=== PATIENT | male | born 1950 | race Caucasian/White ===

== ENCOUNTER 2024-04-02 07:03 | Day surgery (SDC) | payer OTHER ==
[2024-04-02] VITALS (11 sets, daily range): BP systolic 104–166; BP diastolic 48–79; PULSE 53–60; RESP 15–18; TEMP 97.1–97.3
[~2024-04-02] VITALS: Ht 172.7 cm; Wt 86.2 kg
[~2024-04-02 07:03] MED LIST: 0.9% NACL 500ML IV.SOLN 0 ML IV ONE; ASPI-1197 PO; ATOR40TA69 PO; LEVO200C2 PO; LISI40TA9 PO; METF-446 PO; METO-408 PO
[2024-04-02] MEDS: 0.9%NACL 1000ML 1,000 ML IV ONE (08:30)
[2024-04-02] MEDS ORDERED: proPOFol 10 MG/ML 20ML VIAL IV ONE (10:29)
== END 2024-04-02 11:52 | disposition home or self-care (01) ==
LOC: ENDO 07:03 → DAH 07:18 → ENDO 11:52
PROVIDERS: ATTEND Internal Medicine Gastroenterology
DX: Z12.11 Encounter for screening for malignant neoplasm of colon (principal); K63.3 Ulcer of intestine; R93.3 Abnormal findings on diagnostic imaging of other parts of digestive tract; K86.2 Cyst of pancreas; I10 Essential (primary) hypertension; E11.9 Type 2 diabetes mellitus without complications; I25.10 Atherosclerotic heart disease of native coronary artery without angina pectoris; E03.9 Hypothyroidism, unspecified; Z79.84 Long term (current) use of oral hypoglycemic drugs; Z79.82 Long term (current) use of aspirin; Z79.899 Other long term (current) drug therapy
CPT/HCPCS: 82948; 45380; J7030 ×2; J2704; A4620; A4215; A4223; A7002; A4222; A4221; A4663; A4606; J7040; J3490

== ENCOUNTER 2024-04-10 06:19 | Day surgery (SDC) | payer OTHER ==
[~2024-04-10] VITALS: Ht 172.7 cm; Wt 86.2 kg
[2024-04-10] VITALS (10 sets, daily range): BP systolic 100–130; BP diastolic 54–76; PULSE 53–58; RESP 14–18; TEMP 97.6–98
[~2024-04-10 06:19] MED LIST changes: -0.9% NACL 500ML IV.SOLN 0 ML IV ONE
[2024-04-10] MEDS: 0.9%NACL 1000ML 1,000 ML IV ONE (06:58)
[2024-04-10] MEDS ORDERED: proPOFol 10 MG/ML 20ML VIAL IV ONE (08:16)
--- NOTE | 2024-04-10 09:36 | NUR ---
FULL AND COMPLETE DISCHARGE INSTRUCTIONS GIVEN TO PATIENT AND FAMILY BOTH VERBALLY AND IN WRITING. VOICED UNDERSTANDING TO GI PROCEDURE PRECAUTIONS AND FOLLOW UP PIV REMOVED WITH CATHETER TIP INTACT. W/C WITH FAMILY TO POV TO HOME.
== END 2024-04-10 09:37 | disposition home or self-care (01) ==
LOC: ENDO 06:19 → DAH 06:19 → ENDO 09:37
PROVIDERS: ATTEND Internal Medicine Gastroenterology
DX: R93.3 Abnormal findings on diagnostic imaging of other parts of digestive tract (principal); K86.2 Cyst of pancreas; E11.9 Type 2 diabetes mellitus without complications; I11.9 Hypertensive heart disease without heart failure; E78.5 Hyperlipidemia, unspecified; E03.9 Hypothyroidism, unspecified; Z95.5 Presence of coronary angioplasty implant and graft; Z79.84 Long term (current) use of oral hypoglycemic drugs; Z79.899 Other long term (current) drug therapy
CPT/HCPCS: 43237; 82948 ×3; J7030; J2704; A4620; A4215 ×2; A4223; A4222; A4221; A4663; A4606; J3490